=== PATIENT | male | born 1995 | race Caucasian/White ===

== ENCOUNTER 2024-03-30 18:44 | Inpatient (IN) | payer SELFPAY ==
[2024-03-30] MEDS ORDERED: ONDANSETRON 4 MG/2 ML VIAL ONE (19:32)
[2024-03-30] MEDS ORDERED: LEVALBUTEROL 1.25 MG/3 ML NEB ONE (19:32)
--- NOTE | 2024-03-30 19:57 | RAD REPORT ---
Procedure: Chest Single View HISTORY: Cough COMPARISON: none FINDINGS: The lungs appear clear of acute infiltrate. No significant pleural effusion noted. The heart is normal size. IMPRESSION: No acute abnormality is displayed.
[2024-03-30] MEDS ORDERED: ACETAMINOPHEN 500 MG TAB ONE (20:35)
[2024-03-30] MEDS ORDERED: NA CHLORIDE 0.9% 1,000 ML ONE (20:36)
[2024-03-30 20:56] LABS: SARS-CoV-2 Antigen CONTROL BLUE LINE VIS/BG OK; SARS-CoV-2 Antigen Rapid Res Negative (Negative)
[2024-03-30] MEDS ORDERED: VANCOMYCIN 1 GM/VIAL ONE (21:18)
[2024-03-30] MEDS ORDERED: NA CHLORIDE 0.9% 250 ML ONE (21:18)
[2024-03-30] MEDS ORDERED: NA CHLORIDE 0.9% 2,000 ML ONE (21:18)
[2024-03-30 21:31] LABS: Absolute Lymphocytes (CBC) 0.8 K/uL (0.7-4.9); Absolute Neutrophil 8.8 K/uL (1.8-8.0); Basophils % 0.1 % (0-1.3); Lymphocytes % 7.2 % (15.3-44.8); MCH 31.1 pg (27.0-35.0); MCHC 34.1 g/dL (32.0-36.0); MCV 91.4 fL (80-100); MPV 8.4 fL (7.6-11.3); Monocytes % 9.7 % (3.3-12.3); Platelets 174 thou/uL (152-406); RBC Red Blood Cell Count 4.81 M/uL (4.33-5.43); Red Cell Distribution Width 14.7 % (12.1-15.2)
[2024-03-30 21:41] LABS: PT Prothrombin Time 13.6 SECONDS (9.4-12.5); PTT, Activated Partial Thromb 42.5 SECONDS (24.3-36.9); Protime INR 1.22
[2024-03-30 21:47] LABS: Albumin 3.2 g/dL (3.4-5.0); Albumin/Globulin Ratio 0.9 (1.1-1.8); Anion Gap 7.8 mEq/L (5.0-15.0); Bilirubin Total 0.8 mg/dL (0.2-1.0); Globulin 3.7 g/dL (2.3-3.5); Potassium 2.8 mEq/L (3.5-5.1); Protein, Total 6.9 g/dL (6.4-8.2)
--- NOTE | 2024-03-30 21:55 | RAD REPORT ---
Procedure: Chest Single View HISTORY: Central venous line placement FINDINGS: Tip of a central venous line lies within the distal superior vena cava. No pneumothorax
--- NOTE | 2024-03-30 22:31 | RAD REPORT ---
EXAM: CT brain without contrast HISTORY: Confusion COMPARISON: None TECHNIQUE: Multiple contiguous axial images were obtained and a CT of the brain without contrast.. Sagittal and coronal reconstruction performed. Automated exposure control, adjustment of the mA and/or kV according to patient size, and/or iterative reconstruction. Unless otherwise specified, incidental f indings do not require dedicated imaging follow-up FINDINGS: An intracranial bleed is not seen Ventricles are normal caliber No extra-axial fluid collection noted No significant hypodensity within the brain Fluid within the maxillary and sphenoid sinuses. Mild chronic appearing opacification ethmoid sinuses IMPRESSION: No acute intracranial abnormality noted. Fluid within the maxillary and sphenoid sinuses may indicate acute sinusitis If the patient continues to have symptoms to suggest an acute intracranial abnormality then MRI of th e brain would be recommended.
--- NOTE | 2024-03-30 22:46 | RAD REPORT ---
EXAM: Chest Abdomen Pelvis W Cont CLINICAL INDICATION: Shortness of breath and vomiting TECHNIQUE: CT chest, abdomen and pelvis was performed, with 100 cc Isovue-300 IV contrast, as per de partment protocol. Axial, sagittal and coronal reconstructions were obtained. One or more of the following dose reduction techniques were used: Automated exposure control, adjustment of the mA and/o r kV according to the patient size, and/or iterative reconstruction. Unless otherwise specified, incidental findings do not require dedicated imaging follow-up. [id number]. Oral contrast not given. This limits evaluation of the bowel. COMPARISON: None FINDINGS: Mild to moderate tree-in-bud opacities right lower, right middle and right upper lobes. Mild right pe ribronchial thickening. Mild tree-in-bud opacities left lower lobe. Left lower lobe bronchial wall thickening. Mild mediastinal and hilar lymphadenopathy Marked thickening of the wall of the esophagus. No pleural effusion.. No pericardial effusion Spleen 13 cm. Tiny low-density lesions liver nonspecific but probably benign. The pancreas, adrenals and kidneys unremarkable Moderate to large amount of stool within the colon.. No evidence of diverticulitis. Bladder distention. IMPRESSION: Mild to moderate right and mild left tree-in-bud opacities may indicate an atypical infection or pneu monitis. Bilateral bronchial wall thickening may be chronic. Marked thickening of the wall of the esophagus probably inflammation. Direct visualization is recomme nded. Mild mediastinal and hilar lymphadenopathy reactive in nature. Neoplasm such as pulmonary can have a similar appearance. Follow-up CT in 3 months would be helpful to assess stability/resolution. Moderate to marked amount of stool throughout the colon Bladder distention Mild splenomegaly
[2024-03-30 22:58] LABS: C-Reactive Protein 83.2 mg/L (<3.00)
[2024-03-30] MEDS ORDERED: NA CHLORIDE 0.9% 100 ML ONE (23:05)
[2024-03-30] MEDS ORDERED: CEFEPIME 2 GM VIAL ONE (23:05)
[2024-03-30] MEDS ORDERED: IBUPROFEN 400 MG TAB ONE (23:05)
[2024-03-30] MEDS ORDERED: KCL 20 MEQ/100 mL IVPB 100 ML IV ONE (23:05)
--- NOTE | 2024-03-30 23:05 | ER ---
Nurse's Notes [facility] Name: Guillermo Chew Age: 28 yrs Sex: Male : 1995 Arrival Date: 03/30/2024 Time: 18:44 Bed 16 Private MD: Diagnosis: Hypokalemia;Acute hyponatremia, opiate addiction, acute influenza A, atypical pneumonia, generalized weakness, moderate dehydration and hypovolemia Presentation: 03/30 19:00 Initial Sepsis Screen: Does the patient meet any 2 criteria? HR > 90 bpm. Yes Does the jb4 patient have a suspected source of infection? No. Patient's initial sepsis screen is negative. Risk Assessment: Do you want to hurt yourself or someone else? Patient reports no desire to harm self or others. 19:00 Acuity: ELAINE 1 jb4 19:00 Chief complaint: Parent and/or Guardian states: We think he maybe detoxing or possibly jb4 taken more drugs. He is a chronic drug user and today he has been out of it and having trouble breathing. Coronavirus screen: Client presents with at least one sign or symptom that may indicate coronavirus-19. Ebola Screen: No symptoms or risks identified at this time. Onset of symptoms was March 30, 2024. Transition of care: patient was not received from another setting of care. 19:00 Method Of Arrival: Wheelchair jb4 Triage Assessment: 03/31 09:08 General: Appears distressed, unkempt. Respiratory: Reports cough that is Onset: The bp symptoms/episode began/occurred at an unknown time. the patient has mild shortness of breath. Historical: - Allergies: 03/30 20:07 No Known Allergies; jb4 - PMHx: 20:07 Drug abuse; jb4 - Immunization history:: Adult Immunizations up to date. - Infectious Disease History:: Denies. - Family history:: not pertinent. - Hospitalizations: : No recent hospitalization is reported. - Social history:: Smoking status: Patient denies any tobacco usage or history of. Screenin/18 07:03 [facility] ED Fall Risk Assessment (Adult) History of falling in the last 3 months, bp including since admission No falls in past 3 months (0 pts) Confusion or Disorientation No (0 pts) Intoxicated or Sedated Yes (3 pts) Impaired Gait No (0 pts) Mobility Assist Device Used No (0 pt) Altered Elimination No (0 pt) Score/Fall Risk Level 3 or more points = High Risk Oriented to surroundings, Maintained a safe environment. Abuse screen: Denies threats or abuse. Denies injuries from another. Nutritional screening: No deficits noted. Tuberculosis screening: No symptoms or risk factors identified. Assessment: 03/30 19:00 General: Appears distressed, ill, Behavior is cooperative, drowsy. Pain: Denies pain. 4 Neuro: Level of Consciousness is obeys commands, lethargic. Cardiovascular: Patient's skin is warm and dry. Rhythm is sinus tachycardia. Respiratory: Respiratory: Airway is patent Respiratory effort is even, labored, Respiratory pattern is symmetrical, hypoventilation Breath sounds with crackles bilaterally. Derm: Skin is intact, Skin is pink, warm \T\ dry. Musculoskeletal: Circulation, motion, and sensation intact. Range of motion: intact in all extremities. 20:08 Reassessment: Pt remains lethargic, respirations are now tachypneic and labored. [facility] 20:08 Reassessment: Reassessment: still unable to establish IV access, this nurse and Michael, [address] [place] [address], have attempted multiple times. Provider and charge nurse notified. 21:00 Reassessment: Patient appears in no apparent distress at this time. Patient and/or jb4 family updated on plan of care and expected duration. Pain level reassessed. Patient is alert, oriented x 3, equal unlabored respirations, skin warm/dry/pink. 22:00 Reassessment: Patient appears in no apparent distress at this time. Patient and/or jb4 family updated on plan of care and expected duration. Pain level reassessed. Patient is alert, oriented x 3, equal unlabored respirations, skin warm/dry/pink. 22:57 Reassessment: Patient appears in no apparent distress at this time. Patient and/or jb4 family updated on plan of care and expected duration. Pain level reassessed. Patient is alert, oriented x 3, equal unlabored respirations, skin warm/dry/pink. 23:49 Reassessment: Patient appears in no apparent distress at this time. Patient and/or jb4 family updated on plan of care and expected duration. Pain level reassessed. Patient is alert, oriented x 3, equal unlabored respirations, skin warm/dry/pink. 03/31 00:30 Reassessment: Patient appears in no apparent distress at this time. Patient and/or jb4 family updated on plan of care and expected duration. Pain level reassessed. Patient is alert, oriented x 3, equal unlabored respirations, skin warm/dry/pink. Vital Signs: 03/30 19:00 BP 139 / 94; Pulse 107; Resp 10; Pulse Ox 84% on R/A; jb4 20:03 BP 133 / 82; Pulse 111; Resp 28; Temp 100.7; Pulse Ox 97% on 2 lpm NC; Weight 63.5 kg jb4 (R); Height 5 ft. 9 in. (R); 22:15 BP 95 / 48; Pulse 79; Resp 18; Temp 99.6(O); Pulse Ox 97% on 3 lpm NC; jb4 23:49 BP 115 / 72; Pulse 69; Resp 18; Pulse Ox 96% on 3 lpm NC; jb4 20:03 Body Mass Index 20.67 (63.50 kg, 175.26 cm) jb4 ED Course: 18:46 Patient arrived in ED. im 19:11 Grayson Hernandez MD is Attending Physician. rn 19:26 Carlos Sellers, AMENA is Primary Nurse. jb4 19:38 Missed attempt(s): 20 gauge in right antecubital area. Bleeding controlled, band aid jb4 applied, catheter tip intact. Missed attempt(s): 18 gauge in left upper arm. Bleeding controlled, band aid applied, catheter tip intact. 19:43 Chest Single View XRAY In Process Unspecified. EDMS 19:50 Triage completed. jb4 20:07 Arm band placed on right wrist. jb4 20:22 Attending Physician role handed off by Grayson Hernandez MD sp4 20:22 Jourdan Quinones MD is Attending Physician. sp4 21:46 Chest Single View XRAY In Process Unspecified. EDMS 22:10 CT Head Brain wo Cont In Process Unspecified. EDMS 22:11 CT Chest, Abdomen, Pelvis - W/Contrast In Process Unspecified. EDMS 23:02 Betito James MD is Hospitalizing Provider. sp4 03/31 06:58 Primary Nurse role handed off by Carlos Sellers, RN bp 06:58 Ronnie Silva, AMENA is Primary Nurse. bp 07:03 No provider procedures requiring assistance completed. Patient admitted, IV remains in bp place. 09:07 Patient has correct armband on for positive identification. Provided Education on: N/A. bp Administered Medications: 03/30 19:37 Drug: Levalbuterol Inhalation 1.25 mg Inhalation once Route: Inhalation; jb 19:38 Not Given (Other Intervention Used): ondansetron 4 mg IVP once; over 2 minutes [facility] 19:38 Drug: Zofran IM 4 mg IM once Route: IM; Site: right vastus lateralis; [facility] 03/31 06:43 Follow up: Response: No adverse reaction [facility] 03/30 21:13 Drug: NS 0.9% IV 1000 ml IV at 1000 ml once; to be given as a bolus over 60 minutes [facility] Route: IV; Rate: 1000 ml; Site: right jugular; 03/31 09:09 Follow up: IV Status: Completed infusion 03/30 21:13 Drug: Acetaminophen PO 1000 mg PO once Route: PO; [facility] 03/31 06:41 Follow up: Response: No adverse reaction [facility] 03/30 21:49 Drug: NS 0.9% IV (30 ml/kg) 30 ml/kg IV at bolus once; Sepsis Protocol; to be given as [facility] a bolus over 90 minutes Route: IV; Rate: bolus; Site: right jugular; 03/31 06:41 Follow up: IV Status: Completed infusion; IV Intake: 1900ml [facility] 03/30 21:49 Drug: vancoMYCIN IVPB 1 grams IVPB once over 2 hrs Route: IVPB; Infused Over: 2 hrs; [facility] Site: right jugular; 03/31 06:40 Follow up: IV Status: Completed infusion; IV Intake: 250ml [facility] 03/30 23:18 Drug: Cefepime IVPB 2 grams IVPB at 200 ml/hr once over 30 mins; (mix in NS 100 mL) [facility] Route: IVPB; Rate: 200 ml/hr; Infused Over: 30 mins; Site: right jugular; 03/31 06:40 Follow up: IV Status: Completed infusion; IV Intake: 100ml [facility] 03/30 23:18 Drug: Ibuprofen PO 800 mg PO once Route: PO; 4 03/31 06:42 Follow up: Response: No adverse reaction [facility] 00:00 Drug: Potassium Chloride IV 20 mEq IV at calculated rate once; administer over 1-2 jb4 hours Route: IV; Rate: calculated rate; Site: right jugular; 06:40 Follow up: IV Status: Completed infusion; IV Intake: 100ml rg5 01:05 Not Given (Other Intervention Used): d5-ns20 meq/l 1000 ml IV at 125 ml/hr continuous jb4 01:05 Drug: D5-NS IV 1000 ml IV at 125 ml/hr continuous Route: IV; Rate: 125 ml/hr; Site: jb4 right jugular; 09:09 Follow up: IV Status: Completed infusion bp 06:30 Drug: morphine IVP or IV 4 mg IVP once over 4 mins Route: IVP; Infused Over: 4 mins; rg5 Site: right jugular; 06:39 Follow up: Response: No adverse reaction rg5 06:30 Drug: Ativan IVP 1 mg IVP once Route: IVP; Site: right jugular; rg5 06:39 Follow up: Response: No adverse reaction rg5 Medication: 09:07 VIS not applicable for this client. bp Intake: 06:40 IV: 250ml; Total: 250ml. rg5 06:40 IV: 100ml; Total: 350ml. rg5 06:40 IV: 100ml; Total: 450ml. rg5 06:41 IV: 1900ml; Total: 2350ml. rg5 Outcome: 03/30 23:04 Decision to Hospitalize by Provider. sp4 03/31 09:04 Admitted to Med/surg accompanied by tech, room 417, with chart, bp Condition: stable Instructed on the need for admit, 09:13 Patient left the ED. bp Signatures: Dispatcher [employer] EDMS Grayson Hernandez MD MD rn Bryson, James RN RN jb4 Ronnie Silva RN RN bp Jourdan Quinones MD MD sp4 Angelia Mcbride Rommel RN RN rg5 Corrections: (The following items were deleted from the chart) 03/30 20:07 20:03 BP 133 / 82; Pulse 111bpm; Resp 28bpm; Pulse Ox 97% 2 lpm Nasal Cannula; jb4 jb4 20:09 19:00 Reassessment: Pt remains lethargic, respirations are now tachypneic and labored. jb4 jb4
--- NOTE | 2024-03-30 23:05 | EDPHYS ---
Physician Documentation [facility] Hector Name: Guillermo Chew Age: 28 yrs Sex: Male : 1995 Arrival Date: 03/30/2024 Time: 18:44 Bed 16 Private MD: ED Physician Jourdan Quinones HPI: 03/30 19:47 This 28 yrs old Male presents to ER via Unassigned with complaints of Detox, Shortness rn Of Breath, Vomiting. 19:47 The patient has shortness of breath. rn 19:50 Onset: The symptoms/episode began/occurred yesterday. The patient's shortness of breath rn is aggravated by nothing, is alleviated by nothing. Severity of symptoms: At their worst the symptoms were moderate in the emergency department the symptoms are unchanged. The patient has not experienced similar symptoms in the past. Family reports patient just came from [place], has known drug user, drug of choice is fentanyl and benzos. Last used either drug a few days ago. Started getting sick now for 2 days with cough, congestion, nausea and vomiting with diarrhea. Feels generalized weakness and malaise. Denies drug use in the last couple days or intoxication. Did take Suboxone today.. Historical: - Allergies: 20:07 No Known Allergies; jb4 - PMHx: 20:07 Drug abuse; jb4 - Immunization history:: Adult Immunizations up to date. - Infectious Disease History:: Denies. - Family history:: not pertinent. - Hospitalizations: : No recent hospitalization is reported. - Social history:: Smoking status: Patient denies any tobacco usage or history of. ROS: 19:50 Constitutional: Negative for fever, chills, and weight loss, Cardiovascular: Negative rn for chest pain, palpitations, and edema, Respiratory: Positive for cough and shortness of breath Abdomen/GI: Positive for nausea and diarrhea, positive for vomiting MS/Extremity: Negative for injury and deformity, Skin: Negative for injury, rash, and discoloration, Neuro: Positive for generalized weakness and malaise Exam: 19:48 ECG was reviewed by the Attending Physician. rn 19:50 Constitutional: Thin male, tachypneic, awake and alert Head/Face: Normocephalic, rn atraumatic. ENT: Dry mucous membranes, no stridor Cardiovascular: Tachycardic, regular Respiratory: Moderate tachypnea, diminished breath sounds at bases with coarse crackles throughout Abdomen/GI: Soft, nontender MS/ Extremity: Pulses equal, no cyanosis. Neurovascular intact. Full, normal range of motion. Equal circumference. Neuro: Awake and alert, GCS 15, oriented to person, place, time, and situation. Vital Signs: 19:00 BP 139 / 94; Pulse 107; Resp 10; Pulse Ox 84% on R/A; jb4 20:03 BP 133 / 82; Pulse 111; Resp 28; Temp 100.7; Pulse Ox 97% on 2 lpm NC; Weight 63.5 kg jb4 (R); Height 5 ft. 9 in. (R); 22:15 BP 95 / 48; Pulse 79; Resp 18; Temp 99.6(O); Pulse Ox 97% on 3 lpm NC; jb4 23:49 BP 115 / 72; Pulse 69; Resp 18; Pulse Ox 96% on 3 lpm NC; jb4 20:03 Body Mass Index 20.67 (63.50 kg, 175.26 cm) jb4 Procedures: 21:18 Central Line: the site was prepped with Betadine, in sterile fashion, a triple lumen sp4 catheter was inserted, in the right internal jugular vein, in 1 attempts. placement was verified, by CXR, by blood return, Ultrasound Guided CVL , the site was dressed with 4X4s, Tegaderm, using sterile technique, the patient tolerated the procedure, well, Patient has exhausted peripheral vascular access. CVL was placed for resuscitation. MDM: 19:11 Medical Screening Exam initiated rn 19:53 ED course: Patient initially with decreased responsiveness, nurse woke him up with rn sternal rub. After he woke up he was tachypneic with coarse bilateral breath sounds.. 20:20 Transition of care: After a detail discussion of the patient's case, care is rn transferred to Jourdan Quinones MD. 20:22 ED course: Has not used drugs for 3 days. Tachypnea, sputum, possible withdrawal. . sp4 22:47 Differential diagnosis: Anxiety Reaction asthma, Bronchitis CHF exacerbation, Chronic sp4 Obstructive Pulmonary Disease Myocardial Infarction pneumonia, Pneumothorax Psychogenic pulmonary edema. Data reviewed: vital signs, nurses notes, old medical records, lab test result(s), EKG, radiologic studies, CT scan, plain films. ED course: EXAM: CT brain without contrast HISTORY: Confusion COMPARISON: None TECHNIQUE: Multiple contiguous axial images were obtained and a CT of the brain without contrast.. Sagittal and coronal reconstruction performed. Automated exposure control, adjustment of the mA and/or kV according to patient size, and/or iterative reconstruction. Unless otherwise specified, incidental findings do not require dedicated imaging follow-up FINDINGS: An intracranial bleed is not seen Ventricles are normal caliber No extra-axial fluid collection noted No significant hypodensity within the brain Fluid within the maxillary and sphenoid sinuses. Mild chronic appearing opacification ethmoid sinuses IMPRESSION: No acute intracranial abnormality noted. Fluid within the maxillary and sphenoid sinuses may indicate acute sinusitis If the patient continues to have symptoms to suggest an acute intracranial abnormality then MRI of the brain would be recommended. . 22:47 ED course: After R CVL placement - Exam Date: 03/30/24 Procedure: Chest Single View sp4 HISTORY: Central venous line placement FINDINGS: Tip of a central venous line lies within the distal superior vena cava. No pneumothorax Reported By: Toni Avendaño. ED course: Procedure: Chest Single View HISTORY: Cough COMPARISON: none FINDINGS: The lungs appear clear of acute infiltrate. No significant pleural effusion noted. The heart is normal size. IMPRESSION: No acute abnormality is displayed.. 22:51 ED course: Procedure: Chest Single View HISTORY: Cough COMPARISON: none FINDINGS: The sp4 lungs appear clear of acute infiltrate. No significant pleural effusion noted. The heart is normal size. IMPRESSION: No acute abnormality is displayed. ED course: EXAM: Chest Abdomen Pelvis W Cont CLINICAL INDICATION: Shortness of breath and vomiting TECHNIQUE: CT chest, abdomen and pelvis was performed, with 100 cc Isovue-300 IV contrast, as per department protocol. Axial, sagittal and coronal reconstructions were obtained. One or more of the following dose reduction techniques were used: Automated exposure control, adjustment of the mA and/or kV according to the patient size, and/or iterative reconstruction. Unless otherwise specified, incidental findings do not require dedicated imaging follow-up. [id number]. Oral contrast not given. This limits evaluation of the bowel. COMPARISON: None FINDINGS: Mild to moderate tree-in-bud opacities right lower, right middle and right upper lobes. Mild right peribronchial thickening. Mild tree-in-bud opacities left lower lobe. Left lower lobe bronchial wall thickening. Mild mediastinal and hilar lymphadenopathy Marked thickening of the wall of the esophagus. No pleural effusion.. No pericardial effusion Spleen 13 cm. Tiny low-density lesions liver nonspecific but probably benign. The pancreas, adrenals and kidneys unremarkable Moderate to large amount of stool within the colon.. No evidence of diverticulitis. Bladder distention. IMPRESSION: Mild to moderate right and mild left tree-in-bud opacities may indicate an atypical infection or pneumonitis. Bilateral bronchial wall thickening may be chronic. Marked thickening of the wall of the esophagus probably inflammation. Direct visualization is recommended. Mild mediastinal and hilar lymphadenopathy reactive in nature. Neoplasm such as pulmonary can have a similar appearance. Follow-up CT in 3 months would be helpful to assess stability/resolution. Moderate to marked amount of stool throughout the colon Bladder distention Mild splenomegaly . 23:01 Consideration of Admission/Observation Patient was admitted/placed on observation. sp4 Escalation of care including admission/observation considered. ED course: Patient has significant hyponatremia and hypokalemia. Urinary bladder distention. Moderate amount of dehydration and acidosis. Influenza A positive. Patient warrants admission for electrolyte management. Will order Lim catheter to decompress urinary bladder. Otherwise stable for admission to medicine floor. Hospitalist consulted for admission.. ED course: Dr. James accepted admission . 03/31 00:38 ED course: In the course of evaluation we discovered hepatitis C antibody is reactive. sp4 likely chronic hepatitis C.. 03:03 ED course: Patient was given central line for basically exhausted peripheral access.. sp4 Patient improved after hydration. Patient was admitted for moderate to severe electrolyte imbalance including hyponatremia and hypokalemia.. 03/30 19:19 Order name: Blood Culture Adult (2) 03/30 19:19 Order name: CBC with Diff; Complete Time: 22:43 03/30 19:19 Order name: CMP; Complete Time: 22:59 03/30 19:19 Order name: Lactate w/ 2H reflex if indic.; Complete Time: 22:43 03/30 19:19 Order name: Protime (+inr); Complete Time: 22:43 03/30 19:19 Order name: Ptt, Activated; Complete Time: 22:43 03/30 19:19 Order name: Flu; Complete Time: 21:14 03/30 19:19 Order name: SARS-COV-2 Antigen Rapid; Complete Time: 21:14 rn 03/30 19:19 Order name: BNP; Complete Time: 22:59 rn 03/30 21:19 Order name: HIV Ag/Ab Combo; Complete Time: 00:37 4 03/30 21:19 Order name: Hepatitis Panel; Complete Time: 00:37 [facility] 03/30 21:20 Order name: Urine Drug Screen; Complete Time: 00:37 [facility] 03/30 21:20 Order name: Alcohol Level; Complete Time: 00:37 [facility] 03/30 22:51 Order name: C-Reactive Protein; Complete Time: 22:59 EDIN 03/30 23:14 Order name: Urinalysis w/ reflexes EDIN 03/30 23:14 Order name: CBC with Automated Diff EDIN 03/30 23:14 Order name: CBC with Automated Diff; Complete Time: 07:02 EDIN 03/30 23:14 Order name: Comprehensive Metabolic Panel EDIN 03/30 23:14 Order name: Comprehensive Metabolic Panel; Complete Time: 07:02 EDIN 03/30 23:14 Order name: Magnesium EDIN 03/30 23:14 Order name: Magnesium; Complete Time: 07:02 [facility] 03/30 23:14 Order name: Phosphorus [facility] 03/30 23:14 Order name: Phosphorus; Complete Time: 07:02 EDIN 03/31 05:55 Order name: ABG Arterial Blood Gas; Complete Time: 07:02 [facility] 03/30 19:19 Order name: Chest Single View XRAY; Complete Time: 19:58 03/30 20:24 Order name: CT Chest, Abdomen, Pelvis - W/Contrast; Complete Time: 22:53 [facility] 03/30 20:24 Order name: CT Head Brain wo Cont; Complete Time: 22:43 [facility] 03/30 21:17 Order name: Chest Single View XRAY; Complete Time: 22:43 [facility] 03/30 19:19 Order name: EKG; Complete Time: 19:19 rn 03/30 19:19 Order name: Accucheck; Complete Time: 00:52 rn 03/30 19:19 Order name: Cardiac monitoring; Complete Time: 19:41 rn 03/30 19:19 Order name: EKG - Nurse/Tech; Complete Time: 19:41 rn 03/30 19:19 Order name: IV Saline Lock - Large Bore; Complete Time: 21:14 rn 03/30 19:19 Order name: Labs collected and sent; Complete Time: 21:14 rn 03/30 19:19 Order name: O2 Per Protocol; Complete Time: 19:41 rn 03/30 19:19 Order name: O2 Sat Monitoring; Complete Time: 19:41 rn 03/30 19:19 Order name: Vital Signs; Complete Time: 19:41 rn 03/30 23:01 Order name: Lim; Complete Time: 23:18 sp4 EC/17 19:48 Rate is 100 beats/min. Rhythm is regular. QRS interval is normal. QT interval is rn normal. No Q waves. T waves are Normal. No ST changes noted. Clinical impression: NSR w/ Non-specific ST/T Changes. Interpreted by me. Reviewed by me. Administered Medications: 19:37 Drug: Levalbuterol Inhalation 1.25 mg Inhalation once Route: Inhalation; [facility] 19:38 Not Given (Other Intervention Used): ondansetron 4 mg IVP once; over 2 minutes jb 19:38 Drug: Zofran IM 4 mg IM once Route: IM; Site: right vastus lateralis; [facility] 03/31 06:43 Follow up: Response: No adverse reaction [facility] 03/30 21:13 Drug: NS 0.9% IV 1000 ml IV at 1000 ml once; to be given as a bolus over 60 minutes jb Route: IV; Rate: 1000 ml; Site: right jugular; 03/31 09:09 Follow up: IV Status: Completed infusion bp 03/30 21:13 Drug: Acetaminophen PO 1000 mg PO once Route: PO; 4 03/31 06:41 Follow up: Response: No adverse reaction [facility] 03/30 21:49 Drug: NS 0.9% IV (30 ml/kg) 30 ml/kg IV at bolus once; Sepsis Protocol; to be given as jb a bolus over 90 minutes Route: IV; Rate: bolus; Site: right jugular; 03/31 06:41 Follow up: IV Status: Completed infusion; IV Intake: 1900ml [facility] 03/30 21:49 Drug: vancoMYCIN IVPB 1 grams IVPB once over 2 hrs Route: IVPB; Infused Over: 2 hrs; jb4 Site: right jugular; 03/31 06:40 Follow up: IV Status: Completed infusion; IV Intake: 250ml rg5 03/30 23:18 Drug: Cefepime IVPB 2 grams IVPB at 200 ml/hr once over 30 mins; (mix in NS 100 mL) jb4 Route: IVPB; Rate: 200 ml/hr; Infused Over: 30 mins; Site: right jugular; 03/31 06:40 Follow up: IV Status: Completed infusion; IV Intake: 100ml rg5 03/30 23:18 Drug: Ibuprofen PO 800 mg PO once Route: PO; jb4 03/31 06:42 Follow up: Response: No adverse reaction rg5 00:00 Drug: Potassium Chloride IV 20 mEq IV at calculated rate once; administer over 1-2 jb4 hours Route: IV; Rate: calculated rate; Site: right jugular; 06:40 Follow up: IV Status: Completed infusion; IV Intake: 100ml rg5 01:05 Not Given (Other Intervention Used): d5-ns20 meq/l 1000 ml IV at 125 ml/hr continuous jb4 01:05 Drug: D5-NS IV 1000 ml IV at 125 ml/hr continuous Route: IV; Rate: 125 ml/hr; Site: jb4 right jugular; 09:09 Follow up: IV Status: Completed infusion bp 06:30 Drug: morphine IVP or IV 4 mg IVP once over 4 mins Route: IVP; Infused Over: 4 mins; rg5 Site: right jugular; 06:39 Follow up: Response: No adverse reaction rg5 06:30 Drug: Ativan IVP 1 mg IVP once Route: IVP; Site: right jugular; rg5 06:39 Follow up: Response: No adverse reaction rg5 Disposition: 03/30 23:05 Critical Care:. sp4 Disposition Summary: 03/30/24 23:04 Hospitalization Ordered Notes: Hospitalization Status: Inpatient Admission sp4 Provider: Betito James spCaitlin Condition: Stable sp4 Problem: new sp4 Symptoms: have improved sp4 Bed/Room Type: Standard sp4 Location: Telemetry/MedSurg (Inpatient)(03/31/24 06:40) Room Assignment: [facility](03/31/24 06:40) kl Diagnosis - Hypokalemia sp4 - Acute hyponatremia, opiate addiction, acute influenza A, atypical pneumonia, sp4 generalized weakness, moderate dehydration and hypovolemia Forms: - Medication Reconciliation Form sp4 - SBAR form sp4 - Leadership Thank You Letter sp4 Critical care time excluding procedures: 23:05 Critical care time: Bedside Care: 36 minutes, Consultation: 12 minutes, Family sp4 Intervention: 12 minutes. Total time: 60 minutes Signatures: Dispatcher [employer] EDMS Leelee Diaz, RN RN Grayson Peace MD MD rn Bryson, James, RN RN jb4 Ronnie Silva RN Minerva Navarro rv1 Jourdan Quinones MD MD sp4 Ankit Kennedy RN RN rg5 Corrections: (The following items were deleted from the chart) 20:24 20:24 Chest Abdomen Pelvis W Con+CT.RAD.BRZ ordered. EDMS EDMS 21:17 21:17 Chest Single View+RAD.RAD.BRZ ordered. EDMS EDMS 21:20 21:20 URINE DRUG SCREEN+UC.LAB.BRZ ordered. EDMS EDMS 21:20 21:20 ETHANOL+C.LAB.BRZ ordered. EDMS EDMS 22:51 21:20 C-REACTIVE PROTEIN+C.LAB.BRZ ordered. EDMS EDMS 23:38 23:04 Telemetry/MedSurg (Inpatient) sp4 rv1 23:38 23:04 sp4 rv1 03/31 06:40 03/30 23:38 BR ER HOLD rv1 kl 03/31 06:40 03/30 23:38 ERHOLD- rv1 kl
--- NOTE | 2024-03-30 23:09 | P.HP ---
Certification for Inpatient Patient admitted to: Inpatient With expected LOS: >2 Midnights Practitioner: I am a practitioner with admitting privileges, knowledge of patient current condition, hospital course, and medical plan of care. Services: Services provided to patient in accordance with Admission requirements found in Title 42 Section 412.3 of the Code of Federal Regulations Patient History Date of Service: 03/31/24 Reason for admission: Pneumonia History of Present Illness: 28 yrs old Male with past medical history of drug abuse brought to ER with shortness of breath/nausea vomiting/generalized weakness and fatigue which has been going on for since yesterday and has been progressively worsening and was brought to ER .The symptoms/episode began/occurred yesterday. The patient's shortness of breath is aggravated by nothing, is alleviated by nothing. No similar episodes in the past. Family reports patient just came from [place], has known drug user, drug of choice is fentanyl and benzos. Last used either drug a few days ago. Started getting sick now for 2 days with cough, congestion, nausea and vomiting with diarrhea. Feels generalized weakness and malaise.Did take Suboxone today. Patient was assessed in the ER and was admitted for further management of dehydration and hypokalemia, hyponatremia and influenza and atypical pneumonia . Allergies No Known Allergies Allergy (Unverified 03/31/24 01:02) Home medications list reviewed: Yes - Past Medical/Surgical History Past Medical History: Reviewed- Non-Contributory Past Surgical History: Reviewed- Non-Contributory - Family History Family History: Reviewed- Non-Contributory - Social History Smoking Status: Current some day smoker Review of Systems 10-point ROS is otherwise unremarkable Physical Examination - Vital Signs Temperature: 98.4 F Blood Pressure: 112/60 Pulse: 88 Respirations: 18 Pulse Ox (%): 94 - Physical Exam General: Alert, Oriented x3, Mild distress HEENT: Atraumatic, Normocephalic Neck: Supple Respiratory: Diminished, Crackles/rales Cardiovascular: Regular rate/rhythm, Normal S1 S2 Capillary refill: <2 Seconds Gastrointestinal: Soft and benign, W/out hepatosplenomegaly Musculoskeletal: No clubbing Integumentary: No rashes, No breakdown Neurological: Normal speech, Normal strength at 5/5 x4 extr, Cranial nerves 3-12 intact Lymphatics: No axilla or inguinal lymphadenopathy - Studies Laboratory Data (last 24 hrs) 03/30/24 03/30/24 03/30/24 21:05 21:05 21:05 WBC 10.60 Hgb 15.0 Hct 44.0 Plt Count 174 PT 13.6 H INR 1.22 APTT 42.5 H Sodium 129 L Potassium 2.8 L BUN 23 H Creatinine 0.68 L Glucose 120 H Total Bilirubin 0.8 AST 22 ALT 16 Alkaline Phosphatase 70 Microbiology Data (last 24 hrs): 03/30/24 19:50 Nasopharnyx Influenza Type A Antigen Screen - Final 03/30/24 19:50 Nasopharnyx Influenza Type B Antigen Screen - Final Assessment and Plan - Plan Influenza A Atypical pneumonia Hypokalemia Hyponatremia Dehydration Drug abuse Asthma Exacerbation Plan Aggressive hydration X-ray findings noted Possible atypical pneumonia Started on IV antibiotic Started on Tamiflu Pain control Electrolytes monitor and replace accordingly Started on Steroids and bronchodialators GI/DVT prophylaxis Advanced directive full code Discharge Plan: Home Plan to discharge in: 48 Hours - Advance Directives Does patient have a Living Will: No Does patient have a Durable POA for Healthcare: No - Code Status/Comfort Care Code Status: Full Code Time Spent Managing Pts Care (In Minutes): 48
[2024-03-30] MEDS ORDERED: NS KCL 40MEQ 40 MEQ/1,000 ML BAG IV SCH (23:45)
[2024-03-31 00:17] LABS: Barbiturates NEGATIVE (NEGATIVE); Benzodiazepines POSITIVE (NEGATIVE); Cocaine NEGATIVE (NEGATIVE); METHAMPHETAM NEGATIVE (NEGATIVE); Methadone NEGATIVE (NEGATIVE); Opiates NEGATIVE (NEGATIVE); Phencyclidine NEGATIVE (NEGATIVE); THC Cannibis POSITIVE (NEGATIVE)
[2024-03-31 00:20] LABS: Hepatitis B Core IgM Nonreactive (Nonreactive); Hepatitis B surface AG Interp. Nonreactive (Nonreactive); Hepatitis C Virus Ab Reactive (Nonreactive)
[2024-03-31 00:21] LABS: HBsAG Nonreactive Report Report
[2024-03-31] MEDS ORDERED: D5 0.9 NS 1,000 ML IV ONE (00:58)
[2024-03-31] MEDS ORDERED: AZITHROMYCIN 500 MG INJ IVPB ONE (01:15)
[2024-03-31] MEDS ORDERED: NA CHLORIDE 0.9% 250 ML ONE (01:15)
[2024-03-31] MEDS ORDERED: OSELTAMIVIR 75 MG CAP PO ONE (01:15)
[2024-03-31] MEDS ORDERED: CEFTRIAXONE 1000 MG/VIAL ONE (01:15)
[2024-03-31] MEDS ORDERED: NA CHLORIDE 0.9% 50 ML ONE (01:16)
[2024-03-31] MEDS: CEFTRIAXONE 1,000 MG in NA CHLORIDE 0.9% 50 ML IVPB SCH (01:32)
[2024-03-31] MEDS: OSELTAMIVIR 75 MG CAP PO SCH (01:32)
[2024-03-31] MEDS: AZITHROMYCIN IV 500 MG in NA CHLORIDE 0.9% 250 ML IVPB SCH (01:33)
[2024-03-31] MEDS: NS KCL 20MEQ 20 MEQ/1,000 ML BAG IV SCH (02:00)
[2024-03-31] MEDS ORDERED: ALBUTEROL 2.5 MG/3 ML NEB SOL ONE ×2 (02:10→04:20)
[2024-03-31] MEDS ORDERED: NS KCL 20MEQ 1,000 ML IV ONE (02:10)
[2024-03-31] MEDS: METHYLPREDNISOLONE 125 MG INJ IV SCH (02:25)
[2024-03-31] MEDS: IPRATROPIUM BROM 0.5MG/2.5ML NEB SCH (02:37)
[2024-03-31] MEDS: ALBUTEROL 2.5 MG/3 ML NEB SOL NEB SCH (02:37)
[2024-03-31] MEDS ORDERED: METHYLPREDNISOLONE 125 MG INJ ONE (02:44)
[2024-03-31] MEDS ORDERED: HYDROCODONE/APAP 5/325 MG TAB ONE (02:44)
[2024-03-31] MEDS: ALBUTEROL 2.5 MG/3 ML NEB SOL NEB PRN (04:37)
[2024-03-31 05:24] LABS: Albumin 2.6 g/dL (3.4-5.0); Albumin/Globulin Ratio 0.9 (1.1-1.8); Anion Gap 7.3 mEq/L (5.0-15.0); Bilirubin Total 0.5 mg/dL (0.2-1.0); Globulin 2.8 g/dL (2.3-3.5); Magnesium 2.2 mg/dL (1.6-2.4); Potassium 3.3 mEq/L (3.5-5.1); Protein, Total 5.4 g/dL (6.4-8.2)
[2024-03-31 05:54] LABS: Arterial Blood Carboxyhemoglob 1.8 % (0-1.5); Blood Gas Oxyhemoglobin 90.8 % (94-97); Blood Gas THB 11.8 g/dl (12-18); Blood O2 Saturation 94.3 % (92-98.5)
[2024-03-31] MEDS ORDERED: LORazepam 2 MG/ML VIAL ONE (06:24)
[2024-03-31] MEDS ORDERED: MORPHINE 4 MG/ML SYR ONE (06:25)
[2024-03-31 06:35] LABS: Absolute Lymphocytes (CBC) 0.8 K/uL (0.7-4.9); Absolute Monocytes 0.5 K/uL (0.1-1.3); Absolute Neutrophil 6.1 K/uL (1.8-8.0); Basophils % 0.1 % (0-1.3); Hemoglobin 11.9 g/dL (13.6-17.9); Lymphocytes % 11.3 % (15.3-44.8); MCH 31.4 pg (27.0-35.0); MCHC 33.9 g/dL (32.0-36.0); MCV 92.7 fL (80-100); MPV 8.4 fL (7.6-11.3); Monocytes % 6.8 % (3.3-12.3); Neutrophils % 81.8 % (41.7-73.7); Nucleated Red Blood Cells % 0.1 % (0-0); Platelets 129 thou/uL (152-406); RBC Red Blood Cell Count 3.78 M/uL (4.33-5.43); Red Cell Distribution Width 14.3 % (12.1-15.2)
[2024-03-31] MEDS: FLU (Fluarix Triv) TS24-25(6MOS UP)/PF 45 MCG/0.5 ML Syringe IM ONE (07:30)
--- NOTE | 2024-03-31 07:33 | P.PN ---
Date of Service: 03/31/24 Subjective: rapid response called this morning ~10 am. shortly after patient arrived to floor reportedly became hypoxic after episode of vomiting and lead to him taking off oxygen mask concern for aspiration. vitals / oxygenation improved shortly after placing back on nonrebreather been dealing with some intermittent nausea/vomiting at home. Denies hemoptysis intermittently agitated overnight Transfer to ICU afebrile ROS: 10 point ROS as noted above, otherwise negative Physical Exam: GEN: Alert, NAD, appears fatigued CV: Regular rate and rhythm, no edema Pulm: diminished bilaterally, crackles/rales , R>L ABD: soft, nontender, nondistended Neuro: Normal speech, normal affect Problem List: Acute hypoxic respiratory failure secondary to Acute Influenza A / Atypical pneumonia, ?aspiration pneumonia Esophageal wall thickening Hypokalemia Hyponatremia history of Polysubstance abuse /dependence Acute hypoxic respiratory failure secondary to Acute Influenza A / Atypical pneumonia Esophageal wall thickening Possible aspiration On admission, presents with worsening shortness of breath, weakness, fatigue for last few days associated with Nausea/Vomiting/Diarrhea. CT head (03/30): Fluid within maxillary and sphenoid sinuses may indicate acute sinusitis. No acute intracranial abnormalities. CT chest (03/30): Mild to moderate right and mild left tree-in-bud opacities may indicate atypical pneumonia. Bilateral bronchial wall thickening may be chronic. Marked thickening of the wall of the esophagus. Bladder Distention. Mild splenomegaly. Moderate-Marked stool. Mild media stinal and hilar lymphadenopathy reactive in nature. continue empiric rocephin / azithromycin (03/30-) continue tamiflu (03/30-04/04) Follow blood cultures continue IV steroids wean oxygen as tolerated. Dr. Paez, pulm consulted Pain control [facility] feels some improvement after breathing treatments rapid response called this morning ~10 am. Patient took off mask, had episode of vomiting, and became more hypoxic concerning for aspiration Transfer to ICU Hypokalemia Hyponatremia likely related to dehydration Monitor and replete electrolytes as needed Continue IVF history of Polysubstance abuse /dependence Tox screen positive for benzos, THC. Patient reports last used a ~`week ago (fentanyl ~1 gram/day) since visiting family here, he was wanting to detox, so started suboxone/klonopin last week within 1-2 days of arriving in [place], began to have worsening mentation, vomiting, weakness Took suboxone prior to admission concern for withdrawal vs intermittently oversedated from medications suboxone at high dose, will continue at 1/2 dose for now VTE: SCD Code: Full Dispo: Home, anticipate several days in hospital Pending improvement, off oxygen, pulm recs Transfer to ICU Time Spent Managing Pts Care (In Minutes): 55 >35 minutes critical care time spent at patients bedside.
[2024-03-31] MEDS: ACETAMINOPHEN 325 MG TABLET PO PRN (13:01)
[2024-03-31] MEDS ORDERED: SUBOXONE PO SCH ×2 (14:30→21:00)
[2024-03-31] MEDS: MORPHINE 2 MG/ML SYR IV PRN (18:06)
[2024-03-31] MEDS: LORazepam 2 MG/ML VIAL ONE (19:19)
[2024-03-31] MEDS ORDERED: SODIUM CHLORIDE 0.9% 10ML INJ IV PRN (19:25)
[2024-03-31] MEDS: LORazepam 2 MG/ML VIAL IV PRN (19:26)
[2024-03-31] MEDS: PANTOPRAZOLE 40 MG INJ IVP SCH (19:46)
[2024-03-31] MEDS: ONDANSETRON 4 MG/2 ML VIAL IV PRN (19:46)
[2024-03-31] MEDS: SUBOXONE PO SCH (21:00)
[2024-03-31] MEDS: HYDROMORPHONE HCL 1 MG/ML INJ IV ONE (22:14)
[2024-04-01 04:45] LABS: Absolute Lymphocytes (CBC) 0.7 K/uL (0.7-4.9); Absolute Monocytes 0.6 K/uL (0.1-1.3); Basophils % 0.2 % (0-1.3); Hematocrit 33.1 % (39.6-49.0); Hemoglobin 11.4 g/dL (13.6-17.9); Lymphocytes % 13.3 % (15.3-44.8); MCH 31.5 pg (27.0-35.0); MCHC 34.5 g/dL (32.0-36.0); MCV 91.3 fL (80-100); MPV 7.8 fL (7.6-11.3); Monocytes % 10.5 % (3.3-12.3); Nucleated Red Blood Cells % 0.1 % (0-0); Platelets 139 thou/uL (152-406); RBC Red Blood Cell Count 3.63 M/uL (4.33-5.43); Red Cell Distribution Width 14.4 % (12.1-15.2)
[2024-04-01 05:14] LABS: Albumin 2.5 g/dL (3.4-5.0); Albumin/Globulin Ratio 0.8 (1.1-1.8); Bilirubin Total 0.3 mg/dL (0.2-1.0); Protein, Total 5.5 g/dL (6.4-8.2)
[2024-04-01] MEDS: HYDROMORPHONE HCL 1 MG/ML INJ IV ONE (05:18)
--- NOTE | 2024-04-01 08:00 | RAD REPORT ---
EXAMINATION: ONE VIEW CHEST XR CLINICAL INDICATION: f/u opacities, ?aspiration TECHNIQUE: Frontal chest projection is submitted. Examination is limited by patient positioning and t echnique. COMPARISON: 03/30/2024 FINDINGS: The lungs are grossly clear. Right-sided venous catheters tip in SVC. No postprocedural pneumothorax seen. The heart is upper limit of normal in size. No displaced fractures identified. IMPRESSION: No acute intrathoracic abnormalities.
--- NOTE | 2024-04-01 08:28 | P.PN ---
Date of Service: 04/01/24 Subjective: episode of vomiting yesterday evening after coughing fit intermittently agitated. attempted to leave ICU overnight withdrawing, shaking overnight ROS: 10 point ROS as noted above, otherwise negative Physical Exam: GEN: Alert, NAD, appears fatigued CV: Regular rate and rhythm, no edema Pulm: on HFNC 20L 40% FiO2; diminished bilaterally, crackles/rales , R>L ABD: soft, nontender, nondistended Neuro: Normal speech, normal affect, moves all extremities Problem List: Acute hypoxic respiratory failure secondary to Acute Influenza A / Atypical pneumonia, ?aspiration pneumonia Opioid withdrawal Esophageal wall thickening History of Polysubstance abuse / dependence Hypokalemia Hyponatremia Acute hypoxic respiratory failure secondary to Acute Influenza A / Atypical pneumonia, ?aspiration pneumonia Esophageal wall thickening On admission, presents with worsening shortness of breath, weakness, fatigue for last few days associated with Nausea/Vomiting/Diarrhea. CT head (03/30): Fluid within maxillary and sphenoid sinuses may indicate acute sinusitis. No acute intracranial abnormalities. CT chest (03/30): nmild-mod right and mild left tree-in-bud opacities may indicate atypical pneumonia. Bilateral bronchial wall thickening may be chronic. Marked thickening of the wall of the esophagus. Bladder Distention. Mild splenomegaly. Moderate-Marked stool. Mild mediastina l and hilar lymphadenopathy reactive in nature. continue empiric rocephin / azithromycin (03/30-) continue tamiflu (03/30-04/04) Follow blood cultures - NGTD continue IV steroids per pulm Dr. Paez, pulm consulted Anya feels some improvement after breathing treatments rapid response called 03/31 ~10 am. reportedly became hypoxic after episode of vomiting and lead to him taking off oxygen mask concern for aspiration. vitals / oxygenation improved shortly after placing back on nonrebreather repeat CXR (04/01): negative for any acute findings on HFNC 20L 40% FiO2; wean oxygen as tolerated Opioid withdrawal History of Polysubstance abuse / dependence Tox screen positive for benzos, THC. Patient reports last used a ~1 week ago (fentanyl ~1 gram/day) since visiting family here, he was wanting to detox, so started suboxone/klonopin last week within 1-2 days of arriving in [place], began to have worsening mentation, vomiting, weakness Took suboxone prior to admission in ED concern for withdrawal vs intermittently oversedated from medications suboxone restarted at 1/2 dose 03/31, however in pain and restarted opioid medication overnight, will dc suboxone to avoid potentiating withdrawal Ativan as needed for withdrawals given 2mg dilaudid overnight increase morphine dose if tolerating PO throughout the day, can advance diet and start oral medication Hypokalemia Hyponatremia likely related to dehydration Monitor and replete electrolytes as needed Continue IVF VTE: SCD Code: Full Dispo: Home, anticipate several days in hospital continue icu level of care - hypoxia, withdrawal Pending improvement, off oxygen, pulm recs Time Spent Managing Pts Care (In Minutes): 55 35 minutes critical care time spent at patients bedside.
[2024-04-01] MEDS: PANTOPRAZOLE 40 MG INJ IVP SCH (09:23)
[2024-04-01] MEDS: FUROSEMIDE 20 MG/ 2ML VIAL IV ONE (09:24)
[2024-04-01] MEDS: HYDROCODONE/APAP 5/325 MG TAB PO PRN (10:46)
--- NOTE | 2024-04-01 11:30 | EKG ---
Test Date: 2024-03-30 Test Time: 19:16:03 Kennel Assistant: RENEE MEASUREMENT RESULTS: Intervals: Rate: 100 PA: 126 QRSD: 84 QT: 360 QTc: 464 [place]: P: 82 PA: 126 QRS: 218 T: 43 INTERPRETIVE STATEMENTS: Normal sinus rhythm Right atrial enlargement Nonspecific ST and T wave abnormality Prolonged QT Abnormal ECG No previous ECG available for comparison Electronically Signed On 04-01-24 11:28:07 PORTFOLIO ADMINISTRATOR by Chauncey Lainez
[2024-04-01] MEDS: MORPHINE 4 MG/ML SYR IV PRN (11:42)
--- NOTE | 2024-04-01 11:55 | P.CNS ---
Date of Consult: 04/01/24 Reason for Consult: Respiratory failure Chief Complaint: Respiratory failure History of Present Illness: Patient is 28 years of age brought to the hospital with dyspnea nausea vomiting generalized weakness came on rather suddenly mother at the bedside patient does use narcotics which are apparently prescribed apparently just came from [place] known drug use his drug of choice is fentanyl and benzos he still continues to remain very hypoxic Denies any fever chills chest pain active smoker Allergies No Known Allergies Allergy (Unverified 03/31/24 01:02) Home Medications: Buprenorphine HCl/Naloxone HCl [Suboxone 8 mg-2 mg Sl Film] 8 mg SL BID 03/31/24 clonazePAM [Klonopin*] 2 mg PO PRN 03/31/24 - Social History Place of Residence: Home Review of Systems 10-point ROS is otherwise unremarkable General: Weakness Respiratory: Shortness of Breath Physical Examination Temp Pulse Resp BP Pulse Ox 99.3 F 63 23 H 117/77 92 04/01/24 07:00 04/01/24 11:00 04/01/24 11:42 04/01/24 11:00 04/01/24 11:42 General: Alert, In no apparent distress, Oriented x3 Respiratory: Clear to auscultation bilaterally Cardiovascular: No edema, Normal pulses - Problems (1) Respiratory failure Current Visit: Yes Status: Acute Plan: Patient is 28 years of age admitted with hypoxemia respiratory failure labs unremarkable BNP is normal no significant changes noted on the CT scan echocardiogram CT pulmonary angiogram ordered Qualifiers: Chronicity: acute
[2024-04-01] MEDS: OXYCODONE *CR* 10 MG TAB PO SCH (15:15)
--- NOTE | 2024-04-01 16:29 | RAD REPORT ---
EXAM:Chest Angio CLINICAL HISTORY: Chest pain TECHNIQUE: 100 cc 370 Isovue administered intravenously. This examination was performed according to an angiographic protocol with 3D post-processing. This involves 3D reconstructions, MIPs, volume rendered images and/or shaded surface rendering. One or more of the following dose reduction techniqu es were used: Automated exposure control, adjustment of the mA and/or kV according to patient size, and/or iterative reconstruction. Unless otherwise specified, incidental findings do not require dedic ated imaging follow-up. [id number]. COMPARISON: March 30, 2024. FINDINGS: A pulmonary embolus is not seen. An aortic dissection not noted. No pleural effusion. No pericardial effusion. Esophageal wall thickening. Mediastinal and hilar lymphadenopathy. Moderate tree-in-bud opacities within the right lung have worsened. Mild to moderate tree-in-bud opac ities left lung have worsened. IMPRESSION: No evidence of a pulmonary embolism Moderate right and mild to moderate left tree-in-bud opacities may represent an atypical pneumonia Thickening of the wall of the esophagus probably inflammation. Mediastinal and hilar lymphadenopathy may be reactive or neoplastic. Follow-up CT in 3 months recomme nded
[2024-04-02 05:41] LABS: Absolute Lymphocytes (CBC) 0.9 K/uL (0.7-4.9); Absolute Monocytes 0.6 K/uL (0.1-1.3); Absolute Neutrophil 3.7 K/uL (1.8-8.0); Basophils % 0.1 % (0-1.3); Hematocrit 34.6 % (39.6-49.0); Lymphocytes % 17.7 % (15.3-44.8); MCH 31.5 pg (27.0-35.0); MCHC 34.6 g/dL (32.0-36.0); MCV 91.1 fL (80-100); MPV 7.5 fL (7.6-11.3); Monocytes % 10.9 % (3.3-12.3); Neutrophils % 71.3 % (41.7-73.7); Nucleated Red Blood Cells % 0.2 % (0-0); Platelets 178 thou/uL (152-406); RBC Red Blood Cell Count 3.79 M/uL (4.33-5.43); Red Cell Distribution Width 13.9 % (12.1-15.2)
[2024-04-02 06:18] LABS: ALT/SGPT 15 U/L (16-61); Albumin 2.7 g/dL (3.4-5.0); Albumin/Globulin Ratio 0.9 (1.1-1.8); Alkaline Phosphatase 50 U/L (45-117); Anion Gap 7.1 mEq/L (5.0-15.0); BUN Blood Urea Nitrogen 14 mg/dL (7-18); Bicarbonate 28 mEq/L (21-32); Bilirubin Total 0.3 mg/dL (0.2-1.0); Globulin 3.1 g/dL (2.3-3.5); Glomerular Filtration Rate 135 ml/min (=/>90); Glucose Level 140 mg/dL (74-106); Magnesium 2.1 mg/dL (1.6-2.4); Phosphorus 2.7 mg/dL (2.5-4.9); Potassium 4.1 mEq/L (3.5-5.1); Protein, Total 5.8 g/dL (6.4-8.2); Sodium Level 133 mEq/L (136-145)
[2024-04-02 06:19] LABS: AST/SGOT < 10 U/L (15-37)
[2024-04-02] MEDS ORDERED: IPRATROPIUM BROM 0.5MG/2.5ML NEB PRN (08:01)
--- NOTE | 2024-04-02 08:20 | P.PN ---
Date of Service: 04/02/24 Subjective: feels easier to take a deeper breath today Off high flow; down to 3L NC tolerating soft foods without issues denies any worsening problems ROS: 10 point ROS as noted above, otherwise negative Physical Exam: GEN: Alert, NAD, oriented CV: Regular rate and rhythm, no edema Pulm: nonlabored respirations on 3L NC; diminished bilaterally, crackles/rales , R>L ABD: soft, nontender, nondistended Neuro: Normal speech, normal affect, moves all extremities Problem List: Acute hypoxic respiratory failure secondary to Acute Influenza A / Atypical pneumonia, ?aspiration pneumonia Opioid withdrawal Esophageal wall thickening History of Polysubstance abuse / dependence Hypokalemia Hyponatremia Acute hypoxic respiratory failure secondary to Acute Influenza A / Atypical pneumonia, ?aspiration pneumonia Esophageal wall thickening On admission, presents with worsening shortness of breath, weakness, fatigue for last few days associated with Nausea/Vomiting/Diarrhea. CT head (03/30): Fluid within maxillary and sphenoid sinuses may indicate acute sinusitis. No acute intracranial abnormalities. CT chest (03/30): mild-mod right and mild left tree-in-bud opacities may indicate atypical pneumonia. Bilateral bronchial wall thickening may be chronic. Marked thickening of the wall of the esophagus. Bladder Distention. Mild splenomegaly. Moderate-Marked stool. Mild mediastinal and hilar lymphadenopathy reactive in nature. continue empiric rocephin / azithromycin (03/30-) continue tamiflu (03/30-04/04) Follow blood cultures - NGTD IV solu-medrol deescalated to PO prednisone (04/02) Dr. Paez, pulm consulted Echo ordered to eval EF / stenosis rapid response called 03/31 ~10 am. hypoxic after episode of vomiting and lead to him taking off oxygen mask concern for aspiration. vitals / oxygenation improved shortly after placing back on nonrebreather repeat CTA chest (04/01): negative for PE - noted similar findings to CT chest 03/30 Off high flow since 04/01 evening; currently on 3L NC wean oxygen as tolerated improving from respiratory status Opioid withdrawal History of Polysubstance abuse / dependence Tox screen positive for benzos, THC. Patient reports last used a ~1 week ago (fentanyl ~1 gram/day) since visiting family here, he was wanting to detox, so started suboxone/klonopin last week within 1-2 days of arriving in [place], began to have worsening mentation, vomiting, weakness Took suboxone prior to admission in ED concern for withdrawal vs intermittently oversedated from medications suboxone restarted at 1/2 dose 03/31, however in pain and restarted opioid medication 03/31-04/01 overnight, dc'd suboxone 04/01 to avoid potentiating withdrawal Ativan switched to Klonopin 04/02 wean IV morphine - decreased 04/02; PO oxy added 04/01 plan to taper opioid dose to help risk of withdrawal Hypokalemia Hyponatremia due to dehydration Monitor and replete electrolytes as needed dc ivf VTE: SCD Code: Full Dispo: Home, anticipate 2 days in hospital continue icu level of care - withdrawal Pending improvement, off oxygen, pulm recs Time Spent Managing Pts Care (In Minutes): 55
[2024-04-02] MEDS: predniSONE 20 MG TAB ONE (08:39)
[2024-04-02] MEDS: predniSONE 20 MG TAB PO SCH (08:46)
[2024-04-02] MEDS: MORPHINE 2 MG/ML SYR IV PRN (10:52)
[2024-04-02] MEDS: clonazePAM 0.5 MG TAB PO PRN (19:19)
[2024-04-03 04:48] VITALS: BMI 17.4
[2024-04-03 05:18] LABS: MPV 7.9 fL (7.6-11.3); Nucleated Red Blood Cells % 0.1 % (0-0); Red Cell Distribution Width 14.2 % (12.1-15.2)
[2024-04-03 05:24] LABS: Absolute Lymphocytes (CBC) 1.6 K/uL (0.7-4.9); Absolute Monocytes 0.6 K/uL (0.1-1.3); Absolute Neutrophil 4.1 K/uL (1.8-8.0); Basophils % 0.1 % (0-1.3); Eosinophils % 0.1 % (0-4.4); Hematocrit 38.9 % (39.6-49.0); Hemoglobin 13.4 g/dL (13.6-17.9); Lymphocytes % 24.9 % (15.3-44.8); MCH 31.2 pg (27.0-35.0); MCHC 34.4 g/dL (32.0-36.0); MCV 90.6 fL (80-100); Monocytes % 9.8 % (3.3-12.3); Neutrophils % 65.1 % (41.7-73.7); Platelets 238 thou/uL (152-406); RBC Red Blood Cell Count 4.29 M/uL (4.33-5.43)
[2024-04-03 05:30] LABS: Albumin 2.9 g/dL (3.4-5.0); Albumin/Globulin Ratio 0.9 (1.1-1.8); Anion Gap 8.8 mEq/L (5.0-15.0); Bilirubin Total 0.4 mg/dL (0.2-1.0); Globulin 3.3 g/dL (2.3-3.5); Phosphorus 2.4 mg/dL (2.5-4.9); Potassium 3.8 mEq/L (3.5-5.1); Protein, Total 6.2 g/dL (6.4-8.2)
[2024-04-03] MEDS ORDERED: POTASS/SODIUM PHOSPHATE 1 PKT POWD.PACK PO SCH (07:00)
[2024-04-03] MEDS: POTASS/SODIUM PHOSPHATE 1 PKT POWD.PACK PO SCH (08:36)
--- NOTE | 2024-04-03 08:42 | P.PN ---
Date of Service: 04/03/24 Subjective: some mild nausea, restlessness noted otherwise doing okay breathing more comfortably on room air. off oxygen since yesterday morning no events overnight tolerating diet afebrile ROS: 10 point ROS as noted above, otherwise negative Physical Exam: GEN: Alert, NAD, oriented CV: Regular rate and rhythm, no edema Pulm: nonlabored respirations on room air; mildly diminished bilaterally, R>L ABD: soft, nontender, nondistended Neuro: Normal speech, normal affect, moves all extremities navarrete in place Problem List: Acute hypoxic respiratory failure secondary to Acute Influenza A / Atypical pneumonia, ?aspiration pneumonia Opioid withdrawal Esophageal wall thickening History of Polysubstance abuse / dependence Hypokalemia Hyponatremia Acute hypoxic respiratory failure secondary to Acute Influenza A / Atypical pneumonia, ?aspiration pneumonia Esophageal wall thickening On admission, presents with worsening shortness of breath, weakness, fatigue for last few days associated with Nausea/Vomiting/Diarrhea. CT head (03/30): Fluid within maxillary and sphenoid sinuses may indicate acute sinusitis. No acute intracranial abnormalities. CT chest (03/30): mild-mod right and mild left tree-in-bud opacities may indicate atypical pneumonia. Bilateral bronchial wall thickening may be chronic. Marked thickening of the wall of the esophagus. Bladder Distention. Mild splenomegaly. Moderate-Marked stool. Mild mediastinal and hilar lymphadenopathy reactive in nature. continue empiric rocephin / azithromycin (03/30-) continue tamiflu (03/30-04/04) Follow blood cultures - NGTD s/p IV steroids (03/31-04/02); PO prednisone dc'd 04/02 Dr. Paez, pulm consulted Echo completed; pending official report rapid response called 03/31 ~10 am. hypoxic after episode of vomiting and lead to him taking off oxygen mask concern for aspiration. vitals / oxygenation improved shortly after placing back on nonrebreather repeat CTA chest (04/01): negative for PE - noted similar findings to CT chest 03/30 off oxygen since 04/02 am; breathing comfortably on RA. improving from respiratory status Opioid withdrawal History of Polysubstance abuse / dependence Tox screen positive for benzos, THC. Patient reports last used a ~1 week ago (fentanyl ~1 gram/day) since visiting family here, he was wanting to detox, so started suboxone/klonopin last week within 1-2 days of arriving in [place], began to have worsening mentation, vomiting, weakness Took suboxone prior to admission in ED concern for withdrawal vs intermittently oversedated from medications suboxone restarted at 1/2 dose 03/31, however in pain and restarted opioid medication 03/31-04/01 overnight, dc'd suboxone 04/01 to avoid potentiating withdrawal Ativan switched to Klonopin 04/02 wean IV morphine - decreased 04/02; PO oxy added 04/01 plan to taper opioid dose to help risk of withdrawal Hypokalemia Hyponatremia due to dehydration Monitor and replete electrolytes as needed IVF dc'd 04/02 VTE: SCD Code: Full Dispo: Home, anticipate 1-2 days in hospital downgrade Pending improvement, pulm recs Time Spent Managing Pts Care (In Minutes): 55
[2024-04-03 10:10] LABS: Hepatitis C RNA (PCR) <15 IU/mL; Hepatitis C Virus RNA (PCR)log <1.18 log IU/mL
[2024-04-03 12:04] VITALS: O2SAT 98
[2024-04-03] MEDS ORDERED: MORPHINE 2 MG/ML SYR IV PRN (17:16)
[2024-04-03] MEDS ORDERED: LOPERAMIDE HCL 2 MG CAPSULE PO PRN (19:46)
[2024-04-03] MEDS: MORPHINE 2 MG/ML SYR IV ONE (20:12)
[2024-04-04 08:47] VITALS: BP 109/72; TEMP 98.3
--- NOTE | 2024-04-04 09:03 | P.DS ---
Admission Date: 03/30/24 Discharge Date: 04/04/24 Disposition: ROUTINE DISCHARGE Discharge Condition: GOOD Reason for Admission: Respiratory failure Consultations: Pulmonology - Dr. Paez Brief History of Present Illness: 28 yo M, PMH: drug abuse Patient brought to ER with shortness of breath/nausea vomiting/generalized weakness and fatigue which has been going on for since yesterday and has been progressively worsening and was brought to ER .The symptoms/episode began/occurred yesterday. The patient's shortness of breath is aggravated by nothing, is alleviated by nothing. No similar episodes in the past. Family reports patient just came from [place], has known drug user, drug of choice is fentanyl and benzos. Last used either drug a few days ago. Started getting sick now for 2 days with cough, congestion, nausea and vomiting with diarrhea. Feels generalized weakness and malaise.Did take Suboxone today. Patient was assessed in the ER and was admitted for further management of dehydr ation and hypokalemia, hyponatremia and influenza and atypical pneumonia Hospital Course: Problem List: Acute hypoxic respiratory failure secondary to Acute Influenza A / Aspiration pneumonia Opioid withdrawal Esophageal wall thickening History of Polysubstance abuse / dependence Hypokalemia, improved Hyponatremia, improved Physician discharge instructions: Patient presented with worsening shortness of breath, weakness, fatigue associated with nausea/vomiting for last few days. Secondary to flu A in fection/pneumonia and opioid withdrawal. CT chest with findings concerning for atypical pneumonia, also noted esophageal wall thickening and bilateral bronchial wall thickening. Rapid response called on 03/31 shortly after being brought to the floor from ED. Patient was noted to become more hypoxic after an episode of vomiting that lead him to take off his oxygen mask, concerning for aspiration. He was placed on high flow nasal cannula and transferred to ICU for close monitoring. Dr. Paez, Pulmonology was consulted. Repeat CTA chest was negative for PE, noted similar findings to initial CT on admission. Patient received empiric rocephin / azithromycin while hospitalized and had improvement of his symptoms, completed 5 day treatment. Blood cultures have been without growth since 03/30. Patient also received IV steroids in addition to completing 5 days of tamiflu. IV steroids were deescalated to oral prednisone 04/02 and discontinued. Patient weaned off oxygen supplementation 04/02. Patient was feeling better, breathing more comfortably on room air, afebrile without leukocytosis for several days, and was deemed stable for discharge. In regards to opioid withdrawal. He reports last using Fentanyl ~1 week prior to admission and state he was started on detox process last week with suboxone/klonopin. Initially suboxone was restarted at 1/2 dose 03/31, however overnight patient required opioid pain medication so suboxone was discontinued to avoid risk of potential withdrawal. Unclear if withdrawal precipitated on its own or if flu further worsened his withdrawal/symptoms. He reported high dosage of fentanyl, and given his presentation, he was tapered on the opioid dosage during his hospitalization. Withdrawal symptoms were mild on oxycodone ER 10mg twice daily. Patient plans on stopping opioid use, still has his suboxone. Discussed monitoring initiation of suboxone in hospital vs at home. Patient stated he felt well and did not want to stay further in the hospital. He has detoxed with suboxone before at home. States he will be staying with family and will return to ED if worsens. I think reasonable since he is now improved and several days after getting flu and opioid dose has been tapered, giving him a better chance of success than he had before. He described plans to not take any opioids, and once his withdrawal symptoms are getting worse - in the mild-moderate zone, he will restart his suboxone, first micro-dosing, and titrating up as need. Advised to follow up with PCP within 1 week for further discussion, continued monitoring. He reports already having filled prescriptions for suboxone, zofran in hand. No new prescriptions on discharge. Discussed if history of acid reflux/heart burn, recommend daily over the counter pepcid for 2-4 weeks. Medications: no change in medications. continue home medications as previously prescribed. Follow up: PCP 3-5 days Pulmonology 2-4 weeks Please call to schedule / confirm appointments Discussed Hep C screening positive, but negative for any viral load, indicating he cleared hep c previously without treatment. Patient states he has been told this before. Physical Exam: GEN: Alert, NAD, oriented CV: Regular rate and rhythm, no edema Pulm: nonlabored respirations on room air; clear bilaterally ABD: soft, nontender, nondistended Neuro: Normal speech, normal affect, moves all extremities Vital Signs/Physical Exam: Temp Pulse Resp BP Pulse Ox 98.3 F 80 16 109/72 98 04/04/24 08:00 04/04/24 08:00 04/04/24 08:34 04/04/24 08:00 04/04/24 08:34 Laboratory Data at Discharge: WBC 6.30 thou/uL (4.3-10.9) 04/03/24 04:30 Hgb 13.4 g/dL (13.6-17.9) L D 04/03/24 04:30 Hct 38.9 % (39.6-49.0) L 04/03/24 04:30 Plt Count 238 thou/uL (152-406) D 04/03/24 04:30 PT 13.6 SECONDS (9.4-12.5) H 03/30/24 21:05 INR 1.22 03/30/24 21:05 APTT 42.5 SECONDS (24.3-36.9) H 03/30/24 21:05 Sodium 136 mEq/L (136-145) 04/03/24 04:30 Potassium 3.8 mEq/L (3.5-5.1) 04/03/24 04:30 BUN 11 mg/dL (7-18) 04/03/24 04:30 Creatinine 0.54 mg/dL (0.70-1.30) L 04/03/24 04:30 Glucose 107 mg/dL (74-106) H 04/03/24 04:30 Phosphorus 2.4 mg/dL (2.5-4.9) L 04/03/24 04:30 Magnesium 2.0 mg/dL (1.6-2.4) 04/03/24 04:30 Total Bilirubin 0.4 mg/dL (0.2-1.0) 04/03/24 04:30 AST 12 U/L (15-37) L 04/03/24 04:30 ALT 16 U/L (16-61) 04/03/24 04:30 Alkaline Phosphatase 54 U/L (45-117) 04/03/24 04:30 Home Medications: Buprenorphine HCl/Naloxone HCl [Suboxone 8 mg-2 mg Sl Film] 8 mg SL BID 03/31/24 clonazePAM [Klonopin*] 2 mg PO PRN 03/31/24 Physician Discharge Instructions: Physician discharge instructions: Patient presented with worsening shortness of breath, weakness, fatigue associated with nausea/vomiting for last few days. Secondary to flu A infection/pneumonia and opioid withdrawal. CT chest with findings concerning for atypical pneumonia, also noted esophageal wall thickening and bilateral bronchial wall thickening. Rapid response called on 03/31 shortly after being brought to the floor from ED. Patient was noted to become more hypoxic after an episode of vomiting that lead him to take off his oxygen mask, concerning for aspiration. He was placed on high flow nasal cannula and transferred to ICU for close monitoring. Dr. Paez, Pulmonology was consulted. Repeat CTA chest was negative for PE, noted similar findings to initial CT on admission. Patient received empiric rocephin / azithromycin while hospitalized and had im provement of his symptoms, completed 5 day treatment. Blood cultures have been without growth since 03/30. Patient also received IV steroids in addition to completing 5 days of tamiflu. IV steroids were deescalated to oral prednisone 04/02 and discontinued. Patient weaned off oxygen supplementation 04/02. Patient was feeling better, breathing more comfortably on room air, afebrile without leukocytosis for several days, and was deemed stable for discharge. In regards to opioid withdrawal. He reports last using Fentanyl ~1 week prior to admission and state he was started on detox process last week with suboxone/klonopin. Initially suboxone was restarted at 1/2 dose 03/31, however overnight patient required opioid pain medication so suboxone was discontinued to avoid risk of potential withdrawal. Unclear if withdrawal precipitated on its own or if flu further worsened his withdrawal/symptoms. He reported high dosage of fentanyl, and given his presentation, he was tapered on the opioid dosage during his hospitalization. Withdrawal symptoms were mild on oxycodone ER 10mg twice daily. Patient plans on stopping opioid use, still has his suboxone. Discussed monitoring initiation of suboxone in hospital vs at home. Patient stated he felt well and did not want to stay further in the hospital. He has detoxed with suboxone before at home. States he will be staying with family and will return to ED if worsens. I think reasonable since he is now improved and several days after getting flu and opioid dose has been tapered, giving him a better chance of success than he had before. He described plans to not take any opioids, and once his withdrawal symptoms are getting worse - in the mild-moderate zone, he will restart his suboxone, first micro-dosing, and titrating up as need. Advised to follow up with PCP within 1 week for further discussion, continued monitoring. He reports already having filled prescriptions for suboxone, zofran in hand. No new prescriptions on discharge. Discussed if history of acid reflux/heart burn, recommend daily over the counter pepcid for 2-4 weeks. Medications: no change in medications. continue home medications as previously prescribed. Follow up: PCP 3-5 days Pulmonology 2-4 weeks Please call to schedule / confirm appointments Discussed Hep C screening positive, but negative for any viral load, indicating he cleared hep c previously without treatment. Patient states he has been told this before. Followup: NONE,NONE [Primary Care Provider] - Time spent managing pt's care (in minutes): 45
--- NOTE | 2024-04-05 08:32 | ECHO ---
HEIGHT: 5 ft 9 in WEIGHT: 118 lb 0 oz DATE OF STUDY: 04/02/[address]: Magdi Paez MD 2-DIMENSIONAL: YES M.MODE: YES DOPPLER: YES COLOR FLOW: YES TDS: NO PORTABLE: YES DEFINITY: NO BUBBLE STUDY: NO DIAGNOSIS: RULE OUT CONGESTIVE HEART FAILURE CARDIAC HISTORY: CATHERIZATION: NO SURGERY: NO PROSTHETIC VALVE: NO PACEMAKER: NO MEASUREMENTS (cm) DIASTOLIC (NORMALS) SYSTOLIC (NORMALS) IVSd (0.6-1.2) LA Diam (1.9-4.0) LVEF % LVIDd (3.5-5.7) LVIDs (2.0-3.5) %FS % LVPWd (0.6-1.2) Ao Diam (2.0-3.7) 2 DIMENSIONAL ASSESSMENT: RIGHT ATRIUM: NORMAL LEFT ATRIUM: NORMAL RIGHT VENTRICLE: NORMAL LEFT VENTRICLE: NORMAL TRICUSPID VALVE: NORMAL MITRAL VALVE: NORMAL PULMONIC VALVE: NORMAL AORTIC VALVE: NORMAL PERICARDIAL EFFUSION: NONE AORTIC ROOT: NORMAL LEFT VENTRICULAR WALL MOTION: NORMAL. DOPPLER/COLOR FLOW: NORMAL. COMMENTS: 1. NORMAL LEFT VENTRICULAR SYSTOLIC FUNCTION. LEFT VENTRICULAR EJECTION FRACTION 55-60%. NORMAL WALL MOTION. 2. NORMAL DIASTOLIC FUNCTION. TECHNOLOGIST: CAROLYNE JAIMES
--- NOTE | 2024-04-05 11:12 | EKG ---
Test Date: 2024-03-31 Test Time: 19:31:50 [employer] Technician: BEVERLY MEASUREMENT RESULTS: Intervals: Rate: 53 SC: 146 QRSD: 92 QT: 480 QTc: 450 [place]: P: 92 SC: 146 QRS: 70 T: 69 INTERPRETIVE STATEMENTS: Sinus bradycardia Right atrial enlargement Borderline ECG Compared to ECG 03/31/2024 12:47:45 Atrial abnormality now present Atrial premature complex(es) no longer present Electronically Signed On 04-05-24 11:08:08 SECURITY SITE SUPERVISOR by Chauncey Lainez
--- NOTE | 2024-04-05 11:12 | EKG ---
Test Date: 2024-03-31 Test Time: 12:47:45 Upholstery Bundler: ALAN MEASUREMENT RESULTS: Intervals: Rate: 55 MA: 144 QRSD: 94 QT: 442 QTc: 422 Mercer: P: 69 MA: 144 QRS: 66 T: 48 INTERPRETIVE STATEMENTS: Sinus bradycardia with premature atrial complexes Otherwise normal ECG Compared to ECG 03/30/2024 19:16:03 Atrial premature complex(es) now present Sinus rhythm no longer present Atrial abnormality no longer present ST (T wave) deviation no longer present Prolonged QT interval no longer present Electronically Signed On 04-05-24 11:08:15 [employer] IN[employer] by Chauncey Lainez
== END 2024-04-04 11:36 | disposition home or self-care (01) | DRG 177 ==
LOC: ER 18:44 → ERHOLD 23:09 → 4TH 03-31 07:23 → 3RD-ICU 03-31 11:11 → 2ND 04-03 17:34
PROVIDERS: ADMIT Family Medicine; ATTEND Hospitalist
PROC: 02HV33Z Insertion of Infusion Device into Superior Vena Cava, Percutaneous Approach (ICD-10-PCS; principal; 2024-03-30)
PROC: 5A0945A Assistance with Respiratory Ventilation, 24-96 Consecutive Hours, High Flow/Velocity Cannula (ICD-10-PCS; 2024-03-31)
DX: J69.0 Pneumonitis due to inhalation of food and vomit (principal); J96.01 Acute respiratory failure with hypoxia; E87.1 Hypo-osmolality and hyponatremia; J45.901 Unspecified asthma with (acute) exacerbation; F13.20 Sedative, hypnotic or anxiolytic dependence, uncomplicated; F11.23 Opioid dependence with withdrawal; E87.20 Acidosis, unspecified; J10.08 Influenza due to other identified influenza virus with other specified pneumonia; E87.6 Hypokalemia; E86.0 Dehydration; K73.9 Chronic hepatitis, unspecified; F17.200 Nicotine dependence, unspecified, uncomplicated; F12.20 Cannabis dependence, uncomplicated
CPT/HCPCS: 36415; 36556; 70450; 71045; 71260; 71275; 74177; 80053; 80074; 80307; 82077; 82805; 82947; 83605; 83735; 83880; 84100; 85025; 85610; 85730; 86140; 87040; 87389; 87522; 87804; 87811; 93005; 93306; 94640; 94660; 94760; 96361; 96365; 96366; 96367; 96368; 96372; 96375; 99285; J0692; J0696; J1171; J1940; J2270; J2405; J2470; J2919; J3480; J7030; J7042; J7050; J7512; J7613; J7614; J7644; Q9967

== ENCOUNTER 2024-06-08 17:16 | Emergency (ER) | payer SELFPAY ==
--- NOTE | 2024-06-08 19:15 | RAD REPORT ---
EXAM: XR Hand Right 3 View HISTORY: BR MAIN PAIN Bed: COMPARISON: None TECHNIQUE: 3 radiographic views of the RIGHT hand submitted. FINDINGS: No evidence of acute fracture or dislocation. Joint alignment is maintained. The nerve and dorsal soft tissue swelling. Less prominent swelling along the first and second digits. No significant degenerative changes are present. IMPRESSION: No significant bone or joint abnormality. Soft tissue swelling as above.
[2024-06-08] MEDS ORDERED: TDAP (DIPHTH,PERTUSS(ACELL),TET VAC) 0.5 ML VIAL IMVAC ONE (20:52)
[2024-06-08 21:30] LABS: PT Prothrombin Time 11.8 SECONDS (10.0-13.0); PTT, Activated Partial Thromb 39.7 SECONDS (24.3-36.9); Protime INR 1.04
[2024-06-08 21:33] LABS: Absolute Lymphocytes (CBC) 1.9 K/uL (0.7-4.9); Absolute Monocytes 0.8 K/uL (0.1-1.3); Absolute Neutrophil 5.9 K/uL (1.8-8.0); Basophils % 0.3 % (0-1.3); Eosinophils % 0.3 % (0-4.4); Hematocrit 41.6 % (39.6-49.0); Hemoglobin 14.1 g/dL (13.6-17.9); Lymphocytes % 22.2 % (15.3-44.8); MCH 29.9 pg (27.0-35.0); MCHC 33.9 g/dL (32.0-36.0); MCV 88.3 fL (80-100); MPV 8.2 fL (7.6-11.3); Monocytes % 9.4 % (3.3-12.3); Neutrophils % 67.8 % (41.7-73.7); Platelets 173 thou/uL (152-406); RBC Red Blood Cell Count 4.71 M/uL (4.33-5.43); Red Cell Distribution Width 13.1 % (12.1-15.2)
[2024-06-08 21:41] LABS: Albumin 3.8 g/dL (3.4-5.0); Albumin/Globulin Ratio 1.2 (1.1-1.8); Anion Gap 8.4 mEq/L (5.0-15.0); Bilirubin Total 0.4 mg/dL (0.2-1.0); Globulin 3.3 g/dL (2.3-3.5); Potassium 3.4 mEq/L (3.5-5.1); Protein, Total 7.1 g/dL (6.4-8.2)
--- NOTE | 2024-06-08 21:56 | EDPHYS ---
Physician Documentation [facility] Hector Name: Guillermo Chew Age: 28 yrs Sex: Male : 1995 Arrival Date: 06/08/2024 Time: 17:16 Bed 25 Private MD: ED Physician Marco Escobar HPI: 06/08 17:55 This 28 yrs old Male presents to ER via Unassigned with complaints of hand swelling. kb 17:55 Pt is a 28 year old male who presents for redness and swelling to right hand that kb started one week ago. States he was scratched by a cat 2 weeks ago in the same area. Reports mild flu-like symptoms (fatigue, chills).. Historical: - Allergies: 18:02 No Known Allergies; iw - Home Meds: 18:02 Suboxone sublingual daily [Active]; iw - PMHx: 18:02 drug abuse; iw - Immunization history:: Adult Immunizations not up to date. - Infectious Disease History:: Denies. - Social history:: Smoking status: Patient reports the use of cigarette tobacco products, smokes one-half pack cigarettes per day. ROS: 17:56 Constitutional: As per HPI kb Exam: 21:10 Constitutional: This is a well developed, well nourished patient who is awake, alert, kb and in no acute distress. Head/Face: Normocephalic, atraumatic. ENT: Moist Mucous membranes Cardiovascular: Regular rate Respiratory: Respirations even and unlabored. No increased work of breathing. Talking in full sentences MS/ Extremity: Pulses equal, no cyanosis. Neurovascular intact. Full, normal range of motion. Neuro: Awake and alert, GCS 15, oriented to person, place, time, and situation. 21:10 ECG was reviewed by the Attending Physician. 21:54 Skin: cellulitis, that is moderate, on the right hand, kb Vital Signs: 18:00 BP 147 / 98; Pulse 97; Resp 18; Temp 98.5; Pulse Ox 100% on R/A; Weight 72.57 kg; iw Height 5 ft. 9 in. ; 21:23 BP 138 / 92; Pulse 75; Resp 16; Pulse Ox 96% on R/A; jb4 18:00 Body Mass Index 23.63 (72.57 kg, 175.26 cm) iw MDM: 17:41 Medical Screening Exam initiated kb 17:57 Data reviewed: vital signs, nurses notes. kb 21:54 Differential diagnosis: abscess, allergic reaction, cellulitis, insect bite. Historians kb other than the Patient: Parent: mother. Counseling: I had a detailed discussion with the patient and/or guardian regarding the historical points, exam findings, and any diagnostic results supporting the discharge/admit diagnosis, lab results, radiology results, the need for outpatient follow up, a family practitioner, to return to the emergency department if symptoms worsen or persist or if there are any questions or concerns that arise at home. 22:04 ED course: I evaluated the patient as well, patient with right hand palmar induration ec2 and erythema, performed bedside ultrasound which showed cobblestoning without evidence of discrete pocket of fluid amenable to drainage. Patient lab work is reassuring, patient with reassuring vital signs as well, patient is appropriate to follow-up outpatient with oral antibiotics. DDx considered included processes such as flexor tenosynovitis, abscess, deep space infection.. 06/08 17:57 Order name: Blood Culture Adult (2) kb 06/08 17:57 Order name: CBC with Diff; Complete Time: 21:35 kb 06/08 17:57 Order name: CMP; Complete Time: 21:42 kb 06/08 17:57 Order name: Lactate w/ 2H reflex if indic.; Complete Time: 21:42 kb 06/08 17:57 Order name: Protime (+inr); Complete Time: 21:30 kb 06/08 17:57 Order name: Ptt, Activated; Complete Time: 21:30 kb 06/08 21:46 Order name: Glucose, Ancillary Testing; Complete Time: 21:49 EDMS 06/08 17:58 Order name: Hand Right 3 View XRAY; Complete Time: 19:17 kb 06/08 17:57 Order name: EKG; Complete Time: 17:57 kb 06/08 17:57 Order name: Accucheck; Complete Time: 21:52 kb 06/08 17:57 Order name: Cardiac monitoring; Complete Time: 20:31 kb 06/08 17:57 Order name: EKG - Nurse/Tech; Complete Time: 20:31 kb 06/08 17:57 Order name: IV Saline Lock - Large Bore; Complete Time: 21:22 kb 06/08 17:57 Order name: Labs collected and sent; Complete Time: 21:22 kb 06/08 17:57 Order name: O2 Per Protocol; Complete Time: 20:31 kb 06/08 17:57 Order name: O2 Sat Monitoring; Complete Time: 20:31 kb 06/08 17:57 Order name: Vital Signs; Complete Time: 20:31 kb EC:10 Rate is 84 beats/min. Rhythm is regular. QRS [place] is Normal. [place] interval is normal at kb 132 msec. QRS interval is normal at 88 msec. QT interval is normal at 432 msec. Administered Medications: 21:21 Drug: Boostrix Tdap IM 0.5 ml IM once; as a single dose Route: IM; Site: left deltoid; jb4 22:07 Follow up: Response: No adverse reaction jb4 22:07 Drug: Cephalexin PO 500 mg PO once Route: PO; jb4 22:07 Follow up: Response: Medication administered at discharge. jb4 22:07 Drug: Doxycycline PO 100 mg PO once Route: PO; jb4 22:08 Follow up: Response: Medication administered at discharge. jb4 Disposition: 22:04 I agree with the assessment and plan of care. ec2 Disposition Summary: 06/08/24 21:55 Discharge Ordered Notes: Location: Home kb Condition: Stable kb Diagnosis - Cellulitis of right upper limb - hand kb Followup: kb - With: Emergency Department - When: As needed - Reason: Worsening of condition Followup: kb - With: Private Physician - When: 2 - 3 days - Reason: Recheck today's complaints, Continuance of care, Re-evaluation by your physician Discharge Instructions: - Discharge Summary Sheet kb - Cellulitis, Adult, [id number] kb Forms: - Medication Reconciliation Form kb - Antibiotic Education kb - Prescription Opioid Use kb - Patient Portal Instructions kb - Leadership Thank You Letter kb Prescriptions: - Cephalexin 500 mg Oral Capsule - take 1 capsule ORAL route every 8 hours for 10 days; 30 capsule; Refills: 0, kb Product Selection Permitted - Doxycycline Hyclate 100 mg Oral Tablet - take 1 tablet ORAL route every 12 hours; 20 tablet; Refills: 0, Product kb Selection Permitted Signatures: Dispatcher [employer] Jesi Driver FNP-C FNP-Jessica Harris RN RN Carlos Sellers RN RN jb4 Escobar, Marco, MD MD ec2
--- NOTE | 2024-06-08 21:56 | ER ---
Nurse's Notes [facility] Hector Name: Guillermo Chew Age: 28 yrs Sex: Male : 1995 Arrival Date: 06/08/2024 Time: 17:16 Bed 25 Private MD: Diagnosis: Cellulitis of right upper limb-hand Presentation: 06/08 18:00 Chief complaint: Patient states: cat scratch to right hand X 2.5 weeks ago, it got red iw and swollen a week ago. Coronavirus screen: At this time, the client does not indicate any symptoms associated with coronavirus-19. Ebola Screen: No symptoms or risks identified at this time. Initial Sepsis Screen: Does the patient meet any 2 criteria? HR > 90 bpm. Does the patient have a suspected source of infection? No. Patient's initial sepsis screen is negative. Risk Assessment: Do you want to hurt yourself or someone else? Patient reports no desire to harm self or others. Onset of symptoms was May 24, 2024. 18:00 Method Of Arrival: Ambulatory iw 18:00 Acuity: ELAINE 3 iw Historical: - Allergies: 18:02 No Known Allergies; iw - Home Meds: 18:02 Suboxone sublingual daily [Active]; iw - PMHx: 18:02 drug abuse; iw - Immunization history:: Adult Immunizations not up to date. - Infectious Disease History:: Denies. - Social history:: Smoking status: Patient reports the use of cigarette tobacco products, smokes one-half pack cigarettes per day. Screenin:08 [facility] ED Fall Risk Assessment (Adult) History of falling in the last 3 months, jb4 including since admission No falls in past 3 months (0 pts) Confusion or Disorientation No (0 pts) Intoxicated or Sedated No (0 pts) Impaired Gait No (0 pts) Mobility Assist Device Used No (0 pt) Altered Elimination No (0 pt) Score/Fall Risk Level 0 - 2 = Low Risk Oriented to surroundings, Maintained a safe environment. Abuse screen: Denies threats or abuse. Nutritional screening: No deficits noted. Tuberculosis screening: No symptoms or risk factors identified. Assessment: 19:45 General: Appears in no apparent distress. uncomfortable, Behavior is calm, cooperative, jb4 appropriate for age. Pain: Complains of pain in right hand Pain does not radiate. Pain currently is 5 out of 10 on a pain scale. Neuro: Level of Consciousness is awake, alert, obeys commands, Oriented to person, place, time, situation. Cardiovascular: Patient's skin is warm and dry. Respiratory: Airway is patent Respiratory effort is even, unlabored, Respiratory pattern is regular, symmetrical. Derm: Skin is intact, Skin is pink, warm \T\ dry. Musculoskeletal: Circulation, motion, and sensation intact. Range of motion: intact in all extremities. 21:22 Reassessment: Patient appears in no apparent distress at this time. Patient and/or jb4 family updated on plan of care and expected duration. Pain level reassessed. Patient is alert, oriented x 3, equal unlabored respirations, skin warm/dry/pink. 22:08 Reassessment: Patient appears in no apparent distress at this time. Patient and/or jb4 family updated on plan of care and expected duration. Pain level reassessed. Patient is alert, oriented x 3, equal unlabored respirations, skin warm/dry/pink. Vital Signs: 18:00 BP 147 / 98; Pulse 97; Resp 18; Temp 98.5; Pulse Ox 100% on R/A; Weight 72.57 kg; iw Height 5 ft. 9 in. ; 21:23 BP 138 / 92; Pulse 75; Resp 16; Pulse Ox 96% on R/A; jb4 18:00 Body Mass Index 23.63 (72.57 kg, 175.26 cm) iw ED Course: 17:32 Patient arrived in ED. iw 17:41 [facility]C [facility] kb 17:41 Ezra Nieves MD is Attending Physician. kb 18:01 Triage completed. iw 18:02 Arm band placed on. iw 18:19 Hand Right 3 View XRAY In Process Unspecified. EDMS 20:30 Missed attempt(s): 22 gauge in left hand. Bleeding controlled, band aid applied, jb4 catheter tip intact. 20:30 Missed attempt(s): 20 gauge in right forearm. Bleeding controlled, band aid applied, jb4 catheter tip intact. 21:10 Inserted saline lock: 24 gauge in left forearm, using aseptic technique. ,using aseptic jb4 technique. IV started by AMENA Osborne Blood collected. 21:21 Blood Culture Adult (2) Sent. jb4 21:21 CBC with Diff Sent. jb4 21:21 CMP Sent. jb4 21: Lactate w/ 2H reflex if indic. Sent. jb4 21:22 Protime (+inr) Sent. jb4 21:22 Ptt, Activated Sent. jb4 22:04 Attending Physician role handed off by Ezra Nieves MD ec2 22:04 Marco Escobar MD is Attending Physician. ec2 22:08 Patient has correct armband on for positive identification. Bed in low position. Call jb4 light in reach. Side rails up X 1. Provided Education on: discharge instructions. 22:08 No provider procedures requiring assistance completed. IV discontinued, intact, jb4 bleeding controlled, No redness/swelling at site. Pressure dressing applied. Administered Medications: 21:21 Drug: Boostrix Tdap IM 0.5 ml IM once; as a single dose Route: IM; Site: left deltoid; jb4 22:07 Follow up: Response: No adverse reaction jb4 22:07 Drug: Cephalexin PO 500 mg PO once Route: PO; jb4 22:07 Follow up: Response: Medication administered at discharge. jb4 22:07 Drug: Doxycycline PO 100 mg PO once Route: PO; jb4 22:08 Follow up: Response: Medication administered at discharge. jb4 Medication: 22:08 Vaccine Information Statement (VIS) provided today. Questions and/or concerns jb4 addressed. VIS edition date: November 17, 2020. Outcome: 21:55 Discharge ordered by . kb 22:08 Discharged to home ambulatory, with family, jb4 22:08 Condition: stable 22:08 Discharge instructions given to patient, Instructed on discharge instructions, follow up and referral plans. medication usage, Demonstrated understanding of instructions, follow-up care, medications, Prescriptions given X 2, 22:09 Patient left the ED. jb4 Signatures: Dispatcher [employer] Jesi Driver, TELLY-C [employer] W[employer] SETTLER-Jessica Harris, RN Carlos Jensen RN RN jb4 Marco Escobar MD MD ec2
[2024-06-08] MEDS ORDERED: DOXYCYCLINE 100 MG CAP PO ONE (22:01)
[2024-06-08] MEDS ORDERED: CEPHALEXIN 250 MG CAP ONE (22:01)
[2024-06-08 22:43] VITALS: TEMP 98.5
[2024-06-08 22:46] VITALS: BP 138/92; O2SAT 96
== END 2024-06-08 22:09 | disposition home or self-care (01) ==
LOC: ER 17:16
DX: L03.113 Cellulitis of right upper limb (principal)
CPT/HCPCS: 36415; 80053; 82947; 83605; 85025; 85610; 85730; 87040